=== PATIENT | female | born 2005 | race Caucasian/White ===

== ENCOUNTER 2024-03-19 01:00 | Emergency (ER) | payer BC ==
[~2024-03-19] VITALS: Ht 167.6 cm; Wt 59.0 kg
[2024-03-19] MEDS: IV NORMAL SALINE 1000 ML BAG IV ONE (01:32)
[2024-03-19 01:36] LABS: BASOPHILS % (AUTO) 0.5 % (0.0-2.0); EOSINOPHILS # (AUTO) 0.1 K/uL (0.0-0.7); EOSINOPHILS % (AUTO) 1.7 % (0.0-7.0); HEMATOCRIT 35.2 % (31.2-41.9); HEMOGLOBIN 11.9 g/dL (10.9-14.3); LYMPHOCYTES # (AUTO) 2.2 K/uL (0.8-4.8); LYMPHOCYTES % (AUTO) 42.7 % (20.5-74.5); MEAN CORPUSCULAR HEMOGLOBIN 27.9 uug (24.7-32.8); MEAN CORPUSCULAR HGB CONC 34 g/dL (32.3-35.6); MEAN CORPUSCULAR VOLUME 82.7 fL (75.5-95.3); MONOCYTES # (AUTO) 0.4 K/uL (0.1-1.30); MONOCYTES % (AUTO) 7.8 % (0-11); NEUTROPHILS # (AUTO) 2.4 K/uL (1.8-8.9); NEUTROPHILS % (AUTO) 47.3 % (31.5-64.5); PLATELET COUNT (AUTO) 234 K/uL (179-408); RED BLOOD CELL COUNT(AUTO) 4.26 MIL/uL (3.63-4.92); RED CELL DISTRIBUTION WIDTH 16.4 % (12.3-17.7); WHITE BLOOD COUNT (AUTO) 5.1 K/uL (3.8-11.8)
[2024-03-19 01:48] LABS: DIFFERENTIAL COMMENT 1
[2024-03-19 01:55] LABS: CALCIUM 9.2 mg/dL (8.5-10.1); CREATININE 0.7 mg/dL (0.6-1.3); POTASSIUM 3.4 mmol/L (3.5-5.1)
[2024-03-19 02:07] LABS: ALBUMIN 3.9 g/dL (3.4-5.0); BILIRUBIN,DIRECT 0.2 mg/dL (0.0-0.2); BILIRUBIN,TOTAL 0.7 mg/dL (0.2-1.0); TOTAL PROTEIN, SERUM 7.5 g/dL (6.4-8.2)
[2024-03-19] MEDS ORDERED: MECL-159 PO (02:39)
[2024-03-19 03:10] VITALS: BP 122/85; TEMP 98.3; O2SAT 99
== END 2024-03-19 03:11 | disposition home or self-care (01) ==
LOC: ER 01:07
DX: F15.10 Other stimulant abuse, uncomplicated (principal); F17.210 Nicotine dependence, cigarettes, uncomplicated; R53.1 Weakness; R42 Dizziness and giddiness; R10.2 Pelvic and perineal pain
CPT/HCPCS: 99283; 96360; 99406; 80076; 80048; 85025; 84702; 36415; J7040; A4606; A4663